=== PATIENT | male | born 1965 | race Caucasian/White ===

== ENCOUNTER 2016-06-22 17:34 | Emergency (ER) | payer BC ==
--- NOTE | 2016-06-22 17:36 | PDOC ---
History of Present Illness - General History Source: Patient Exam Limitations: No Limitations - History of Present Illness Initial Comments: 06/22/16 17:45 The patient is a 51 year old male, with no significant past medical history, who presents today complaining of an unusual breathing sensation. The patient states that he was sitting home at his computer when he started to notice his breathing. The heavy breathing is not exacerbated when walking or walking up steps. The patient states that he is unsure of these symptoms are all in his head, but visited the emergency room to be sure he was not having any heart related issues. Denies chest pain, cough. Denies fever, chills, nausea, vomiting. Denies hx of HTN, asthma, heart disease, allergies. Allergies:None reported. <Le Valerio - Last Filed: 06/22/16 18:11> <Kehinde Dumont - Last Filed: 06/22/16 18:14> - General Chief Complaint: Shortness of Breath Stated Complaint: SOB Time Seen by Provider: 06/22/16 17:36 Past History <Le Valerio - Last Filed: 06/22/16 18:11> <Kehinde Dumont - Last Filed: 06/22/16 18:14> - Past Medical History Allergies/Adverse Reactions: Allergies Allergy/AdvReac Type Severity Reaction Status Date / Time No Known Allergies Allergy Verified 06/22/16 17:35 Home Medications: Ambulatory Orders NK [No Known Home Medication] 06/22/16 Review of Systems - Review of Systems Able to Perform ROS?: Yes Comments:: 06/22/16 17:45 CONSTITUTIONAL: Present: anxious Absent: Fever, Chills, Diaphoresis, Generalized Weakness, Malaise, Loss of Appetite HEENT: Absent: Rhinorrhea, Nasal Congestion, Throat Pain, Throat Swelling, Difficulty Swallowing, Mouth Swelling, Ear Pain, Eye Pain, Visual Changes LUNGS: Present: unusual breathing sensation CARDIOVASCULAR: Absent: Chest Pain, Syncope, Palpitations, Irregular Heart Rate, Lightheadedness , Peripheral Edema MUSCULOSKELETAL: Absent: Myalgia, Arthralgia, Joint Swelling, Back pain, Neck Pain SKIN: Absent: Rash, Itching, Pallor <Le Valerio - Last Filed: 06/22/16 18:11> *Physical Exam - Physical Exam Comments: 06/22/16 17:46 GENERAL: [The patient is awake, alert, and fully oriented, in no acute distress. +Anxious] HEAD: [Normal with no signs of trauma.] EYES: [Pupils equal, round and reactive to light, extraocular movements intact, sclera anicteric, conjunctiva clear.] EXTREMITIES: [Normal range of motion, no edema. Sensation intact. Circulation intact.] NEUROLOGICAL: [Normal speech, normal gait.] PSYCH: [Normal mood, normal affect.] SKIN: [Warm, Dry, normal turgor, no rashes or lesions noted.] <Le Valerio - Last Filed: 06/22/16 18:11> Heart Score/ECG Review #1 06/22/16 17:47 NORMAL EKG: Twelve-lead EKG was performed and reviewed by me. There is normal sinus rhythm at a rate of 64 beats per minute. The axis is normal. The intervals are normal. There are no abnormal Q waves. There are no abnormal ST elevations or depressions. There are no significant T wave abnormalities. Impression: Normal twelve-lead EKG. <Le Valerio - Last Filed: 06/22/16 18:11> ED Treatment Course - RADIOLOGY Radiograph Interpretation: 06/22/16 18:11 Chest X-Ray PA and LAT Normal as reviewed by Dr. Dumont <Le Valerio - Last Filed: 06/22/16 18:11> Medical Decision Making - Medical Decision Making 06/22/16 18:09 Patient presents with a new sensation related to his breathing at rest. The symptoms are better with exertion. He is under a lot of stress due to family issues. His is undergoing chemotherapy for lymphoma. Vital signs, physical examination, twelve-lead EKG, and chest x-ray are all normal. Impression: Probable anxiety, workup is normal. Patient reassured. Small dose of alprazolam given. 06/22/16 18:10 The scribe's documentation has been prepared under my direction and personally reviewed by me in its entirety. I have confirmed that the note above accurately reflects all work, treatment, procedures, and medical decision- making performed by me. <Kehinde Dumont - Last Filed: 06/22/16 18:14> *DC/Admit/Observation/Transfer - Attestations Scribe Attestion: 06/22/16 17:47 Documentation prepared by ALPA Parker, acting as medical engineer for Kehinde Dumont MD. <Le Valerio - Last Filed: 06/22/16 18:11> - Discharge Dispostion Admit: No <Kehinde Dumont - Last Filed: 06/22/16 18:14> Diagnosis at time of Disposition: Anxiety about health - Discharge Dispostion Disposition: HOME Condition at time of disposition: Stable - Patient Instructions Additional Instructions: Today you were evaluated for a sensation with your breathing while resting. Your chest x-ray, EKG, and physical examination were all normal. Try relaxation techniques. Follow-up with her primary care physician. Return to the emergency department for any severe or progressive symptoms.
[2016-06-22 18:08] VITALS: BP 118/75; PULSE 97; TEMP 97.8; BMI 28.1
[2016-06-22] MEDS ORDERED: ALPRAZolam 0.25 MG TABLET PO ONE (18:09)
[2016-06-22] MEDS ORDERED: ALPRAZolam 0.25 MG TABLET ONE (18:15)
--- NOTE | 2016-06-23 17:12 | EKG ---
Test Reason : Blood Pressure : / mmHG Vent. Rate : 064 BPM Atrial Rate : 064 BPM P-R Int : 130 ms QRS Dur : 090 ms QT Int : 394 ms P-R-T Axes : 037 005 026 degrees QTc Int : 406 ms NORMAL SINUS RHYTHM NORMAL ECG NO PREVIOUS ECGS AVAILABLE Confirmed by JOVANI MOJICA MD ([id number]) on 06/23/2016 5:12:11 PM Referred By: AARTI WALLER Confirmed By:JOVANI MOJICA MD
== END 2016-06-22 18:39 | disposition home or self-care (01) ==
LOC: FER 17:34
DX: F06.4 Anxiety disorder due to known physiological condition (principal)
CPT/HCPCS: 71020-TC; 93005; 99282-25

== ENCOUNTER 2017-01-02 08:17 | Day surgery (SDC) | payer BC ==
[2016-12-31 15:30] VITALS: BMI 30.2
[2017-01-02] MEDS ORDERED: LIDOCAINE HCL 1%, 10 MG/ML (20ML VIAL) ONE (10:20)
[2017-01-02] MEDS ORDERED: BUPIVACAINE HCL 0.25% 125 MG/50 ML VIAL ONE (10:21)
[2017-01-02] MEDS ORDERED: MIDAZOLAM HCL 2 MG/2 ML SINGLE DOSE VIAL ONE (10:26)
[2017-01-02] MEDS ORDERED: PROPOFOL 20 ML ONE (10:36)
[2017-01-02] MEDS ORDERED: KETOROLAC TROMETHAMINE 30 MG/1 ML VIAL ONE (10:59)
[2017-01-02] MEDS ORDERED: DEXAMETHASONE SOD PHOSPHATE 4 MG/1 ML VIAL ONE (10:59)
[2017-01-02] MEDS ORDERED: ONDANSETRON 4 MG/2 ML VIAL ONE (10:59)
[2017-01-02] MEDS ORDERED: BUPIVACAINE HCL/PF 0.25% (2.5MG/ML) 10 ML VIAL IJ ONE (11:22)
[2017-01-02] MEDS ORDERED: oxyCODONE HCL 5 MG TABLET ONE ×2 (11:41→12:22)
[2017-01-02 12:36] VITALS: TEMP 98
[2017-01-02 13:10] VITALS: BP 129/73; PULSE 54
--- NOTE | 2017-01-06 10:24 | OP ---
DATE OF OPERATION: 01/02/2017 SURGEON: Damari Rutledge MD HAIR BLENDER: CJ Yeh PREOPERATIVE DIAGNOSES: 1. Right elbow labral epicondylitis. 2. Right elbow mass. POSTOPERATIVE DIAGNOSES: 1. Right elbow labral epicondylitis. 2. Right elbow mass. PROCEDURE: 1. Open excision of right elbow mass. 2. Right elbow lateral epicondylar release with removal of scar tissue. 3. Right elbow removal of bone spur, lateral epicondyle. FINDINGS: 1. Mass in the adipose layer of both the fascia and lateral epicondyle, sent to Pathology for evaluation. 2. Thickened scar tissue, lateral epicondylar insertion. 3. Thickened scar tissue, musculotendinous junction of the tendon. 4. Bone spur, right elbow lateral epicondyle. DESCRIPTION OF PROCEDURE: Informed consent was obtained. The patient was taken to the operating room where the right upper extremity was prepped and draped in sterile fashion. Tourniquet was placed above the elbow and inflated to 250 mmHg. Incision was made on the area of the mass. This was extended to allow for lateral epicondylar release as well. Mass was identified in the adipose layer above the fascia. This was excised in whole, was found to be a darkened, multi-layer mass and sent to Pathology for evaluation. The tendon was then identified, and paratenon was incised. Inverted U incision lifted the central third of the extensor supinator tendon complex. Undersurface scar tissue was debrided. Bone spur was noted on the lateral epicondyle and was removed with a rongeur. The wound was then irrigated with copious amount of irrigation. The central portion of the tendon was re-sutured into place in a slightly lengthened position. Wound was irrigated with copious amounts of irrigation, and the fascia covering the extensor supinator mass was released distally. A layered closure of 2-0 Vicryl and 3-0 nylon was performed. Sterile dressing was placed. Patient was transferred to Recovery without complication. DAMARI RUTLEDGE M.D. [id number]
--- NOTE | 2017-01-06 14:12 | PATH ---
Surgical Pathology Report Patient Name: KYLAH LEHMAN [facility]. Rec. #: [id number] /Age/Gender: 1965 (Age: 51) / M Account: [id number] Location: [facility] AMBUL[facility]ORY Taken: 01/02/2017 Received: 01/02/2017 Reported: 01/06/2017 Physicians: Catarino Schroeder M.D. Specimen(s) Received A: RIGHT ARM EPICONDYLE MASS B: DEEP LATERAL EPICONDYLE SCAR TISSUE RIGHT ARM Clinical History Painful mass right elbow, lateral epicondylitis Final Diagnosis A. SOFT TISSUE, RIGHT ARM, EPICONDYLE MASS, EXCISION: BENIGN SINUSOIDAL/CAVERNOUS HEMANGIOMA. B. SOFT TISSUE, RIGHT ARM, DEEP LATERAL EPICONDYLE SCAR TISSUE, EXCISION: CONNECTIVE TISSUE WITH FIBROSIS AND FIBROCARTILAGE, COMPATIBLE WITH SCAR. Electronically Signed Aiden Ware M.D. Gross Description A. Received in formalin, labeled "right arm epicondyle mass" is a 1.7 x 1 x 0.6 cm fragment of singh soft tissue. The specimen is bisected and submitted entirely in one cassette B. Received in formalin, labeled "deep lateral epicondyles scar tissue, right arm" is a 0.6 cm in greatest dimension a fragment of singh skin. Submitted entirely in one cassette. AF/01/05/2017 final/01/05/2017
== END 2017-01-02 13:35 | disposition home or self-care (01) ==
LOC: FASU 08:17
PROVIDERS: ATTEND Orthopaedic Surgery
PROC: 0JBG0ZX Excision of Right Lower Arm Subcutaneous Tissue and Fascia, Open Approach, Diagnostic (ICD-10-PCS; 2017-01-02)
PROC: 0LN50ZZ Release Right Lower Arm and Wrist Tendon, Open Approach (ICD-10-PCS; principal; 2017-01-02 10:53)
DX: M77.11 Lateral epicondylitis, right elbow (principal); D18.09 Hemangioma of other sites
CPT/HCPCS: 88304-TC; 88305-TC

== ENCOUNTER 2017-01-19 10:17 | Day surgery (SDC) | payer BC ==
[2017-01-15 13:35] VITALS: BMI 29.7
[2017-01-19] MEDS ORDERED: PROPOFOL 20 ML ONE ×2 (11:03)
[2017-01-19 12:26] VITALS: TEMP 98
[2017-01-19 12:28] VITALS: BP 100/65; PULSE 62
== END 2017-01-19 12:49 | disposition home or self-care (01) ==
LOC: FASU-ENDO 10:17
PROVIDERS: ATTEND Internal Medicine Gastroenterology
PROC: 0DJD8ZZ Inspection of Lower Intestinal Tract, Via Natural or Artificial Opening Endoscopic (ICD-10-PCS; principal; 2017-01-19 11:44)
DX: Z12.11 Encounter for screening for malignant neoplasm of colon (principal); Z80.0 Family history of malignant neoplasm of digestive organs

== ENCOUNTER 2018-02-27 12:17 | Observation (INO) | payer BC ==
--- NOTE | 2018-02-27 12:47 | PDOC ---
History of Present Illness - General Stated Complaint: SYNCOPE Time Seen by Provider: 02/27/18 12:19 History Source: Patient Exam Limitations: No Limitations - History of Present Illness Initial Comments: 02/27/18 13:00 Mr. Mcconnell is a 53 yo M with no pertinent past medical history presents to the emergency department BIBA after a witnessed syncopal event at 11:30 am with LOC. Per the patient, he was at a local hardware store, felt lightheadedness and stepped outside when he had his syncopal event. Denies having headaches, fevers, FND, chest pain, SOB, nausea, and vomiting preceding and during the syncopal episode. Per EMS, bystanders deny him hitting his head and the syncopal event lasted 4 seconds. Currently he is asymptomatic without pain and only complains of a small abrasion on the left knee. However, the stated she spoke to the patient after the syncopal event and had slurring of speech after speaking normally initially on the phone with the patient. Denies recent sicknesses, dysuria, hematuria, diarrhea, and melena. No recent travels, immbolizations, cancer hx, hx of DVT. Endorses having elbow surgery right side 14 months ago. Pmhx: Refer to above Shx: Refer to above Meds: None Allergies: Cimetidine Social hx: Denies tobacco, alcohol, and drug abuse. PCP: Dr. Carvajal ([facility]) 02/27/18 15:09 Past History - Past Medical History Allergies/Adverse Reactions: Allergies Allergy/AdvReac Type Severity Reaction Status Date / Time cimetidine [From Tagamet] Allergy Severe SEVERE Verified 02/27/18 12:20 HEADACHE cimetidine HCl [From Tagamet] Allergy Severe SEVERE Verified 02/27/18 12:20 HEADACHE Home Medications: Ambulatory Orders Bacitracin - [Bacitracin Topical Ointment -] 1 applic TP DAILY PRN 4 Days #1 tube 02/28/18 Anemia: No Asthma: No Cancer: No Cardiac Disorders: No CVA: No COPD: No CHF: No Dementia: No Diabetes: No GI Disorders: Yes (CONSTIPATION;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;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) Disorders: No HTN: No Hypercholesterolemia: No Liver Disease: No Seizures: No Thyroid Disease: No - Surgical History Abdominal Surgery: (HERNIA REPAIR A CHILD) Appendectomy: No Cardiac Surgery: No Cholecystectomy: No Lung Surgery: No Neurologic Surgery: No Orthopedic Surgery: Yes (RIGHT ELBOW SURGERY FOR MASS EXCISION) - Suicide/Smoking/Psychosocial Hx Smoking History: Never smoked Have you smoked in the past 12 months: No Hx Alcohol Use: No Drug/Substance Use Hx: No Substance Use Type: None Review of Systems - Review of Systems Able to Perform ROS?: Yes Is the patient limited Kyrgyz proficient: No Constitutional: No: Chills, Diaphoresis, Fever, Weakness HEENTM: No: Blurred Vision, Recent change in vision, Ear Pain, Nose Pain, Throat Pain, Mouth Pain Respiratory: No: Cough, Shortness of Breath Cardiac (ROS): Yes: Syncope. No: Chest Pain, Palpitations, Chest Tightness ABD/GI: No: Diarrhea, Nausea, Poor Appetite, Rectal Bleeding, Vomiting, Abdominal cramping, Tarry Stools : No: Burning, Dysuria, Discharge, Hematuria Musculoskeletal: No: Back Pain, Joint Pain, Neck Pain Integumentary: No: Rash Neurological: No: Headache, Numbness, Paresthesia, Tingling, Tremors, Weakness, Ataxia Psychiatric: No: Stressors Endocrine: No: Increased Hunger Hematologic/Lymphatic: No: Anemia *Physical Exam - Vital Signs Last Vital Signs Temp Pulse Resp BP Pulse Ox 97.9 F 67 16 108/65 02/27/18 12:21 02/27/18 12:21 02/27/18 12:21 02/27/18 12:21 - Physical Exam General Appearance: Yes: Nourished, Appropriately Dressed HEENT: positive: EOMI, CASANDRA Neck: positive: Trachea midline. negative: Lymphadenopathy (R), Lymphadenopathy (L) Respiratory/Chest: positive: Lungs Clear, Normal Breath Sounds. negative: Chest Tender, Respiratory Distress, Accessory Muscle Use Cardiovascular: positive: Regular Rate, S1, S2, Bradycardia. negative: Systolic Murmur Vascular Pulses: Dorsalis-Pedis (R): 3+, Doralis-Pedis (L): 3+ Gastrointestinal/Abdominal: positive: Normal Bowel Sounds. negative: Tender Lymphatic: negative: Adenopathy Musculoskeletal: positive: Normal Inspection. negative: CVA Tenderness Extremity: positive: Normal Capillary Refill, Normal Inspection, Normal Range of Motion. negative: Tender Integumentary: positive: Normal Color, Dry, Warm Neurologic: positive: coil assembler II-XII NML intact, Fully Oriented, Alert, Normal Mood/ Affect, Normal Response, Motor Strength 5/5, Finger to Nose (able to do so without deficits). negative: EOM Palsy, Facial Droop, Sensory Deficit, Disoriented, Depressed Affect Heart Score/ECG Review - ECG Intrepretation Comment:: 02/27/18 13:15 ventricular rate 56 bpm, LA 136 ms, QRS 92 ms, QTc 391 ms. Sinus marcie cardia no ST elevations or depressions ED Treatment Course - LABORATORY CBC & Chemistry Diagram: 02/28/18 05:30 02/28/18 05:30 Medical Decision Making - Medical Decision Making 02/27/18 13:16 53 yo M with no pmhx presents s/p syncopal event ddx: syncope (cardiogenic vs neurogenic vs volume status vs infectious etiology ) vs TIA Initial vitals: Initial Vital Signs Temp Pulse Resp BP 97.9 F 67 16 108/65 02/27/18 12:21 02/27/18 12:21 02/27/18 12:21 02/27/18 12:21 Work up: CBC, cmp, troponins, EKG, cxr, head ct ordered. CBC to assess anemia and infectious process. CMP to assess electrolyte abnormalities. Troponins/EKG to assess cardiac status. Head CT to assess if intracranial masses or bleeds present. CXR to assess infectious etiology or effusions Laboratory Tests 02/27/18 02/27/18 14:00 14:00 WBC 11.7 H RBC 4.97 Hgb 14.8 Hct 44.5 MCV 89.5 MCH 29.8 MCHC 33.3 RDW 13.8 Plt Count 278 MPV 7.4 L Absolute Neuts (auto) 9.6 H Neutrophils % 81.6 Lymphocytes % 10.7 Monocytes % 7.2 Eosinophils % 0.1 Basophils % 0.4 Nucleated RBC % 0 Sodium 142 Potassium 4.2 Chloride 106 Carbon Dioxide 29 Anion Gap 7 L BUN 19 H Creatinine 1.0 Creat Clearance w eGFR > 60 Random Glucose 76 Calcium 8.7 Total Bilirubin 0.5 AST 26 ALT 39 Alkaline Phosphatase 63 Creatine Kinase 108 Troponin I < 0.02 Total Protein 6.7 Albumin 3.[address] within normal limits. 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 Will admit for observation tele for cardiac events and further work up. Was given 1 liter of NS in the department. Dispo: Admit *DC/Admit/Observation/Transfer Diagnosis at time of Disposition: Syncope and collapse - Discharge Dispostion Decision to Admit order: Yes - Prescriptions - Referrals - Patient Instructions - Post Discharge Activity
--- NOTE | 2018-02-27 12:52 | PDOC ---
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 PT was walking at hardware store, began to experience lightheadedness, tunnel vision, walked out of the hardware store and fell over. Per EMS, fall was witnessed by bystander. Per bystander, pt had no head strike. LOC approx 4 seconds. Per pt's , he called her soon afterwards and she noted his speech was slurred on the phone. She states his speech is no longer slurred at this time. No CP, palps, SOB before or after syncopal episode. Per EMS, pt was not confused at the scene. No urine or stool incontinence. Reports he has hayfever and took a sudafed this morning as he often does. Denies recent fevers, chills, abd pain, N/V/D, LE edema. Denies recent travel. 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 Vitals wnl. Exam wnl. Story mostly consistent with vasovagal syncope although no triggers, however, slurred speech reported by concerning for possible neurologic event. Plan -tele -labs -CT -tele obs Heart Score/ECG Review #1 02/27/18 12:52 Twelve-lead EKG was performed and reviewed by me. Sinus bradycardia, rate 56. Normal axis. No ST elevations. Isolated to lead 3. Normal QT interval. Normal QRS interval. No delta waves.
[2018-02-27 14:14] LABS: BASO % 0.4 % (0-2.0); EOS % 0.1 % (0-4.5); HEMATOCRIT 44.5 % (35.4-49); HEMOGLOBIN 14.8 GM/dL (11.7-16.9); LYMPH % 10.7 % (8-40); MCH 29.8 pg (25.7-33.7); MCHC 33.3 g/dl (32.0-35.9); MEAN CELL VOLUME 89.5 fl (80-96); MEAN PLT VOLUME 7.4 fl (7.5-11.1); MONO % 7.2 % (3.8-10.2); NEUT % 81.6 % (42.8-82.8); PLATELET COUNT 278 K/MM3 (134-434); RBC 4.97 M/mm3 (4.00-5.60); RDW 13.8 % (11.9-15.9); WHITE BLOOD COUNT 11.7 K/mm3 (4.0-10.0)
[2018-02-27 14:39] LABS: ALBUMIN 3.9 g/dl (3.4-5.0); ANION GAP 7 MMOL/L (8-16); BILIRUBIN,TOTAL 0.5 mg/dL (0.2-1.0); BLOOD UREA NITROGEN 19 mg/dL (7-18); CALCIUM 8.7 mg/dL (8.5-10.1); CHLORIDE 106 mmol/L (98-107); CO2 29 mmol/L (21-32); GLUCOSE,RANDOM 76 mg/dL (74-106); POTASSIUM 4.2 mmol/L (3.5-5.1); SGOT/AST 26 U/L (15-37); SGPT/ALT 39 U/L (13-61); SODIUM 142 mmol/L (136-145); TOT PROT 6.7 g/dl (6.4-8.2)
[2018-02-27 14:42] LABS: ALK PHOS 63 U/L (45-117)
[2018-02-27] MEDS ORDERED: SODIUM CHLORIDE 1,000 ML IV STA (15:15)
[2018-02-27] MEDS ORDERED: SODIUM CHLORIDE 1,000 ML IV SCH (16:15)
--- NOTE | 2018-02-27 16:15 | PN ---
Teaching Attending Note Name of Resident: Karina Soler ATTENDING PHYSICIAN STATEMENT I saw and evaluated the patient. I reviewed the resident's note and discussed the case with the resident. I agree with the resident's findings and plan as documented with exceptions below. SUBJECTIVE: 53 yom with no significant PMHX, this AM woke up, had breakfast with coffee, drove the hardware store few minutes away, was in the store when felt dizzy, blurry, came out in the sun and transiently passed, fell on his knees when was supported by bystanders, remembers hitting his knees but unsure how hit left forearm. Had momentary LOC, but recalls being supported up, called his and asked her to machine pecan picker. Per patient, he told his to pick him up at [employer], per , unsurre if the word "[employer]" was slurred, but patient stresses it was likely as was on the phone conversation and denies any any further speech/ vision disturbances. Denies any chest pain, palpitations, dyspnea, shaking around the episode. Was noted with Blood sugar 67 at the scene per and was noted orthostatic after 1L IVF hydration in the ED, HR 70s from 62 on standing without any complaints. Currently feels well, neg on 12 point ROS. Reports similar episode 27 years ago while on a trip, given the lack of sleep and fatigue. Has been stressed and waking up almost every night, also feels fatigued from long commute and work hours. Gets headache and dizziness when sleep deprived or has low sugar Per , baseline HR in 50s, snores at night. Also fairly active and exercises 2-3 times a week with no concerns. FamHx of colon ca, has regular colonoscopy screening, last within last 1 year. NO recent changes in bowels, dark or bloody stools or new concerns noted. OBJECTIVE: Vital Signs Period Temp Pulse Resp BP Sys/Bean Pulse Ox Last 24 Hr 97.9 F 62-74 16 98-108/65-73 98 Intake & Output 02/24/18 02/25/18 02/26/18 02/27/18 23:59 23:59 23:59 23:59 Weight 205 lb GENERAL: Awake, alert, and fully oriented, in no acute distress. HEAD: Normal with no signs of trauma. EYES: Pupils equal, round and reactive to light, extraocular movements intact, sclera anicteric, conjunctiva clear. No lid lag. EARS, NOSE, THROAT: Ears normal, nares patent, oropharynx clear without exudates. Moist mucous membranes. NECK: Soft, supple, no JVD or carotid bruit noted LUNGS: Breath sounds equal, clear to auscultation bilaterally. No wheezes, and no crackles. No accessory muscle use. HEART: S1S2 regular, 60s, no murmurs, rubs or gallops appreciated ABDOMEN: Soft, nontender, not distended, normoactive bowel sounds, no guarding, no rebound, no masses. No hepatomegaly or splenomegaly appreciated. MUSCULOSKELETAL: Normal range of motion at all joints. No bony deformities or tenderness. No CVA tenderness. UPPER EXTREMITIES: 2+ pulses, warm, well-perfused. No cyanosis. No clubbing. No peripheral edema. Left elbow bruise with no active bleed LOWER EXTREMITIES: 2+ pulses, warm, well-perfused. No calf tenderness. 1 cm area of abrasion with minimal active bleed over right patellar region, no discharge or surrounding swelling or limitation or ROM noted NEUROLOGICAL: Cranial nerves II-XII intact. Normal speech. Normal gait. AAOx3, facial symmetry, PERRL, EOMI, power 5/5, sensation intact and symmetric to light touch, toes down going, DTR symmetric, no pronator drift PSYCHIATRIC: Cooperative. Good eye contact. Appropriate mood and affect. SKIN: Warm, dry, normal turgor, no rashes or lesions noted, normal capillary refill. Home Medications Medication Instructions Recorded Ibuprofen 800 mg PO DAILY PRN 01/15/17 Active Medications Sodium Chloride (Normal Saline -) 1,000 mls @ 1,000 mls/hr IV ASDIR STA Stop: 02/27/18 16:14 Last Admin: 02/27/18 14:00 Dose: 1,000 mls/hr Laboratory Results - last 24 hr 02/27/18 02/27/18 02/27/18 14:00 14:00 15:21 WBC 11.7 H RBC 4.97 Hgb 14.8 Hct 44.5 MCV 89.5 MCH 29.8 MCHC 33.3 RDW 13.8 Plt Count 278 MPV 7.4 L Absolute Neuts (auto) 9.6 H Neutrophils % 81.6 Lymphocytes % 10.7 Monocytes % 7.2 Eosinophils % 0.1 Basophils % 0.4 Nucleated RBC % 0 Sodium 142 Potassium 4.2 Chloride 106 Carbon Dioxide 29 Anion Gap 7 L BUN 19 H Creatinine 1.0 Creat Clearance w eGFR > 60 Random Glucose 76 Calcium 8.7 Total Bilirubin 0.5 AST 26 ALT 39 Alkaline Phosphatase 63 Creatine Kinase 108 Troponin I < 0.02 Total Protein 6.7 Albumin 3.9 TSH 0.71 EKG sinus marcie 50s ASSESSMENT AND PLAN: 53 yom with syncope -syncope, likely from mild hypovolumia as evident from bun/cr/stress/sleep deprivation compounded by borderline low blood sugars/Pseudoephedrine, pos orthostasis, low suspicion for concerning cardiac or neurological etiology. -Seasonal allergies on pseudoephedrine Plan: IVF, telemetry. Encourage PO food and fluid intake. Advised outpatient sleep study. Check TSH, A1c, lipid panel. Neuro checks. Low suspicion for cardiac/neurological etiology based on current presentation. Patient eager to be discharged. Echo/carotid studies can be done outpatient if no concerns overnight, Patient and relay understanding and agreable with follow up. Admit to observation telemetry. D/c in 24 hours if no concerns. Plan discussed with patient and in detail, all questions answered They relay understanding and agreable to follow up. Total admit time 55 min.
--- NOTE | 2018-02-27 16:47 | HP ---
CHIEF COMPLAINT: PCP: Dr. Davies HISTORY OF PRESENT ILLNESS: Patient is a 53 year old male with no PMHx who presented to the ED s/p syncopal episode. Patient reports he woke up this morning and was in his normal state of health. 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 When he was at the store, patient reports he felt like the room was blurry with some dizziness and then fell on his knees. Patient reports loosing consciousness for just a couple of seconds but remembers the fall. Patient received help from bystanders and then he called his asking her to pick him up. According to she thought he slurred one word when he was speaking , but patient denies it as he believes she misheard him on the phone. Patient however, denies chest pain, palpitations, shortness of breath, diaphoresis before, during, or after the fall. Patient does admit to having a similar episode 27 years ago when he was on a trip due to lack of sleep and dehydration. Patient also admits that in the last month he's had more stress than usual to the point he has not been sleeping throughout the night, causing him to be more fatigued during the day, especially from his long commute to work. According to , patient works out 2-3 times a week. He had a stress test done 15 years ago for chest pain and was negative. She also reports he snores at night and has baseline bradycardia. Otherwise, patient denies any fever, chills, nausea, vomiting, abdominal pain, chest pain, palpitations, shortness of breath, dysuria, hematuria, urgency, acute vision changes, melena, hematochezia. Of Note, patient was found to have glucose level of 67 on the field. In the ED he was found to have orthostatic, after administrating 1 liter of IV NS. When patient stood up his heart rate increased from 60's to 70's without any complaints. 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 Lives with . Smoking: Denies Alcohol: Denies Drugs: Denies Family History: Father- Obesity, HTN, CAD with stent placement age 78, DM Mother- Osteopenia Brother- Multiple sclerosis Allergies: cimetidine [From Tagamet] Allergy (Severe, Verified 02/27/18 12:20) SEVERE HEADACHE cimetidine HCl [From Tagamet] Allergy (Severe, Verified 02/27/18 12:20) SEVERE HEADACHE HOME MEDICATIONS: Home Medications Medication Instructions Recorded Ibuprofen 800 mg PO DAILY PRN 01/15/17 REVIEW OF SYSTEMS CONSTITUTIONAL: Absent: fever, chills, generalized weakness, malaise, loss of appetite, weight change HEENT: Absent: rhinorrhea, nasal congestion, throat pain, throat swelling, difficulty swallowing, mouth swelling, ear pain, eye pain, visual changes CARDIOVASCULAR: syncope Absent: chest pain, palpitations, irregular heart rate, lightheadedness, peripheral edema RESPIRATORY: Absent: cough, shortness of breath, dyspnea with exertion, orthopnea, wheezing, stridor, hemoptysis GASTROINTESTINAL: Absent: abdominal pain, abdominal distension, nausea, vomiting, diarrhea, constipation, melena, hematochezia GENITOURINARY: Absent: dysuria, frequency, urgency, hesitancy, hematuria, flank pain, genital pain MUSCULOSKELETAL: Absent: myalgia, arthralgia, joint swelling, back pain, neck pain SKIN: Absent: rash, itching, pallor HEMATOLOGIC/IMMUNOLOGIC: Absent: easy bleeding, easy bruising, lymphadenopathy, frequent infections ENDOCRINE: Absent: unexplained weight gain, unexplained weight loss, heat intolerance, cold intolerance NEUROLOGIC: dizziness, headache Absent: focal weakness or paresthesias, unsteady gait, seizure, mental status changes, bladder or bowel incontinence PSYCHIATRIC: Absent: anxiety, depression, suicidal or homicidal ideation, hallucinations. PHYSICAL EXAMINATION Vital Signs - 24 hr 02/27/18 02/27/18 02/27/18 12:21 14:13 15:47 Temperature 97.9 F Pulse Rate 67 Pulse Rate [ 67 Sitting] Pulse Rate [ 74 Standing] Pulse Rate [ 62 Supine] Respiratory 16 Rate Blood Pressure 108/65 Blood Pressure 98/65 [Sitting] Blood Pressure 108/73 [Standing] Blood Pressure 103/66 [Supine] O2 Sat by Pulse 98 Oximetry (%) GENERAL: Awake, alert, and fully oriented, in no acute distress. HEAD: Normal with no signs of trauma. EYES: Pupils equal, round and reactive to light, extraocular movements intact, sclera anicteric, conjunctiva clear. No lid lag. EARS, NOSE, THROAT: Oropharynx clear without exudates. Moist mucous membranes. NECK: (-) Bruits, (-) lymphadenopathy, (-) JVD, or masses. LUNGS: Breath sounds equal, clear to auscultation bilaterally. No wheezes, and no crackles. No accessory muscle use. HEART: Regular rate and rhythm, normal S1 and S2 without murmur, rub or gallop. ABDOMEN: Soft, nontender, not distended, normoactive bowel sounds, no guarding, no rebound, no masses. No hepatomegaly or splenomegaly. MUSCULOSKELETAL: No CVA tenderness. UPPER EXTREMITIES: No peripheral edema. LOWER EXTREMITIES: No peripheral edema. NEUROLOGICAL: Cranial nerves II-XII intact. Normal speech. Normal gait. PSYCHIATRIC: Cooperative. Good eye contact. Appropriate mood and affect. Motor strength 5/5 bilaterally with sensory intact SKIN: Superficial abrasion of right knee and left elbow. Normal Turgor, normal capillary refill. Laboratory Results - last 24 hr 02/27/18 02/27/18 02/27/18 14:00 14:00 15:21 WBC 11.7 H RBC 4.97 Hgb 14.8 Hct 44.5 MCV 89.5 MCH 29.8 MCHC 33.3 RDW 13.8 Plt Count 278 MPV 7.4 L Absolute Neuts (auto) 9.6 H Neutrophils % 81.6 Lymphocytes % 10.7 Monocytes % 7.2 Eosinophils % 0.1 Basophils % 0.4 Nucleated RBC % 0 Sodium 142 Potassium 4.2 Chloride 106 Carbon Dioxide 29 Anion Gap 7 L BUN 19 H Creatinine 1.0 Creat Clearance w eGFR > 60 Random Glucose 76 Calcium 8.7 Total Bilirubin 0.5 AST 26 ALT 39 Alkaline Phosphatase 63 Creatine Kinase 108 Troponin I < 0.02 Total Protein 6.7 Albumin 3.9 TSH 0.71 IMAGES: Chest X-Ray (02/27/18): No acute pathology Head CT (02/27/18): No acute pathology ASSESSMENT/PLAN: Patient is a 53 year old male who presented for S/P syncopal episode. Patient admitted to telemetry for further monitoring and management. Syncope -Likely secondary to hypovolemia as patient was found to have slightly elevated BUN of 19 with low glucose levels, history of Sudafed use, (+) orthostatics. -Low suspicion for cardiac or neurological etiologies. -Troponins negative, CT head negative, CXR negative -Continue IV NS @100mls/hr -Cardiac monitoring -Repeat orthostatics in the am -Check TSH, LIPIDS, A1C -Carotid U/S ordered -Neuro checks and frequent vital sign checks -Encourage fluid intake and PO food History of Snoring- Likely Sleep Apnea -May follow up as outpatient Right Knee and Left Elbow Abrasion -Bacitracin Topical daily. -Patient has no drainage F/E/N -IV NS @100mls/hr -Electrolytes wnl -Regular diet Prophylaxis -Low risk DVT as patient ambulates. EAM -No GI required Disposition -Full code -Overnight Telemetry monitoring and may be discharged tomorrow if no events overnight Visit type - Emergency Visit Emergency Visit: Yes ED Registration Date: 02/27/18 Care time: The patient presented to the Emergency Department on the above date and was hospitalized for further evaluation of their emergent condition. - New Patient This patient is new to me today: Yes Date on this admission: 02/27/18 - Critical Care Critical Care patient: No Hospitalist Screening - Colonoscopy Questionnaire Colonoscopy Questionnaire: Colonoscopy Questionnaire - Patient: 50 - 75 years old and never had a screening colonoscopy: No History of colon or rectal polyps, or CA: No History of IBD, Crohn's disease or UC: No History of abdominal radiation therapy as a child: No - Relative: 1 with colon or rectal CA, or polyps at age 60 or younger: Yes Colon or rectal CA diagnosed at age 45 or younger: No Multiple relatives with colon or rectal CA: No (Had colonoscopy done 1 year ago and reports negative) - Outcome: Screening Result: Positive Screen
[2018-02-27 16:48] LABS: PHOSPHOROUS 3.6 mg/dL (2.5-4.9)
[2018-02-27 17:03] LABS: CHOLESTEROL 212 mg/dL (50-200); HDL CHOLESTEROL 51 mg/dL (40-60); TRIGLYCERIDES 226 mg/dL (0-150)
[2018-02-27 18:33] VITALS: BMI 28.1
[2018-02-27] MEDS: BACITRACIN 15 GM TUBE TOPICAL OINTMENT TP SCH (20:05)
[2018-02-28] MEDS ORDERED: PT OWN MED DRAWER 7, Y5N ONE (06:24)
[2018-02-28 07:42] LABS: BASO % 0.3 % (0-2.0); EOS % 0.6 % (0-4.5); HEMOGLOBIN 13.8 GM/dL (11.7-16.9); LYMPH % 29.3 % (8-40); MCH 29.4 pg (25.7-33.7); MCHC 32.9 g/dl (32.0-35.9); MEAN CELL VOLUME 89.4 fl (80-96); MEAN PLT VOLUME 7.5 fl (7.5-11.1); MONO % 9.5 % (3.8-10.2); NEUT % 60.3 % (42.8-82.8); PLATELET COUNT 244 K/MM3 (134-434); WHITE BLOOD COUNT 6.4 K/mm3 (4.0-10.0)
[2018-02-28 08:33] LABS: CHLORIDE 110 mmol/L (98-107); POTASSIUM 4.4 mmol/L (3.5-5.1); SODIUM 146 mmol/L (136-145)
[2018-02-28 08:41] LABS: ANION GAP 11 MMOL/L (8-16); BLOOD UREA NITROGEN 16 mg/dL (7-18); CALCIUM 8.2 mg/dL (8.5-10.1); CO2 25 mmol/L (21-32); CREATININE 0.9 mg/dL (0.55-1.3); GLUCOSE,RANDOM 88 mg/dL (74-106); PHOSPHOROUS 2.8 mg/dL (2.5-4.9)
[2018-02-28 09:27] VITALS: BP 132/78; PULSE 77; TEMP 98.6
[2018-02-28] MEDS: BACITRACIN 15 GM TUBE TOPICAL OINTMENT TP SCH (09:30)
--- NOTE | 2018-02-28 09:32 | PN ---
Physical Exam: SUBJECTIVE: Patient seen and examined, no concerns overnight, no dizziness, weakness or new concerns. AMbulating well with no symptoms. OBJECTIVE: Vital Signs Period Temp Pulse Resp BP Sys/Bean Pulse Ox Last 24 Hr 97.9 F-98.6 F 56-77 16-18 98-155/42-84 98-99 GENERAL: sitting in bed in no acute distress Chest: CTAB, no rales or wheezing Neck: soft, supple, no carotid bruit appreciated Abdomen:soft, obese, NT, ND, positive bowel sounds Extremities: no edema, right knee wound with no active bleed or discharge CVS:S1S2 regular Laboratory Results - last 24 hr 02/27/18 02/27/18 02/27/18 14:00 14:00 15:18 WBC 11.7 H RBC 4.97 Hgb 14.8 Hct 44.5 MCV 89.5 MCH 29.8 MCHC 33.3 RDW 13.8 Plt Count 278 MPV 7.4 L Absolute Neuts (auto) 9.6 H Neutrophils % 81.6 Lymphocytes % 10.7 Monocytes % 7.2 Eosinophils % 0.1 Basophils % 0.4 Nucleated RBC % 0 Sodium 142 Potassium 4.2 Chloride 106 Carbon Dioxide 29 Anion Gap 7 L BUN 19 H Creatinine 1.0 Creat Clearance w eGFR > 60 Random Glucose 76 Hemoglobin A1c % Calcium 8.7 Phosphorus Magnesium Total Bilirubin 0.5 AST 26 ALT 39 Alkaline Phosphatase 63 Creatine Kinase 108 Troponin I < 0.02 Total Protein 6.7 Albumin 3.9 Triglycerides 226 H Cholesterol 212 H Total LDL Cholesterol 141 H HDL Cholesterol 51 TSH 02/27/18 02/27/18 02/27/18 15:18 15:21 20:30 WBC RBC Hgb Hct MCV MCH MCHC RDW Plt Count MPV Absolute Neuts (auto) Neutrophils % Lymphocytes % Monocytes % Eosinophils % Basophils % Nucleated RBC % Sodium Potassium Chloride Carbon Dioxide Anion Gap BUN Creatinine Creat Clearance w eGFR Random Glucose Hemoglobin A1c % Calcium Phosphorus 3.6 Magnesium 2.0 Total Bilirubin AST ALT Alkaline Phosphatase Creatine Kinase Troponin I < 0.02 Total Protein Albumin Triglycerides Cholesterol Total LDL Cholesterol HDL Cholesterol TSH 0.71 02/28/1818 02/28/18 05:30 05:30 05:30 WBC 6.4 RBC 4.70 Hgb 13.8 Hct 42.0 MCV 89.4 MCH 29.4 MCHC 32.9 RDW 14.0 Plt Count 244 MPV 7.5 Absolute Neuts (auto) 3.9 Neutrophils % 60.3 D Lymphocytes % 29.3 D Monocytes % 9.5 Eosinophils % 0.6 D Basophils % 0.3 Nucleated RBC % 0 Sodium 146 H Potassium 4.4 Chloride 110 H Carbon Dioxide 25 Anion Gap 11 BUN 16 Creatinine 0.9 Creat Clearance w eGFR > 60 Random Glucose 88 Hemoglobin A1c % 5.5 Calcium 8.2 L Phosphorus 2.8 Magnesium 2.0 Total Bilirubin AST ALT Alkaline Phosphatase Creatine Kinase Troponin I Total Protein Albumin Triglycerides Cholesterol Total LDL Cholesterol HDL Cholesterol TSH Active Medications Generic Name Dose Route Start Last Admin Trade Name Freq PRN Reason Stop Dose Admin Bacitracin 1 applic 02/27/18 18:45 02/27/18 20:05 Bacitracin - TP 1 applic DAILY GENEVIEVE Administration Sodium Chloride 1,000 mls @ 100 mls/hr 02/27/18 16:15 02/27/18 16:17 Normal Saline - IV 100 mls/hr ASDIR GENEVIEVE Administration telemtry NSR 60s-70s with some arteacts, no events Carotid duplex results noted ASSESSMENT/PLAN: 53 yom with syncope -syncope, likely from mild hypovolumia as evident from bun/cr/stress/sleep deprivation compounded by borderline low blood sugars/Pseudoephedrine, pos orthostasis, low suspicion for concerning cardiac or neurological etiology. -Seasonal allergies on pseudoephedrine Plan: No events on telemetry. Asymptomatic. Orthostatics this AM noted, lying SBP 150s, sitting and standing 130s. No symptoms. Patient advised increased fluid intake and avoiding sudden postural changes. Advised to avoid driving till PCP visit next week. Lipid panel noted, advised to discuss with PCP about diet/exercise vs statins. Outpatient sleep study. A1c noted. Carotid duplex noted. Advised outpatient 2D echo if concerns. D/c home today Plan discussed with patient in detail and all questions answered. Patient relays full understanding of discharge instructions and in agreement. Visit type - Emergency Visit Emergency Visit: Yes ED Registration Date: 02/27/18 Care time: The patient presented to the Emergency Department on the above date and was hospitalized for further evaluation of their emergent condition. - New Patient This patient is new to me today: No - Critical Care Critical Care patient: No - Discharge Referral Referred to [facility] Med P.C.: No
--- NOTE | 2018-02-28 09:35 | DS ---
Physical Exam: SUBJECTIVE: Patient seen and examined OBJECTIVE: Vital Signs Period Temp Pulse Resp BP Sys/Bean Pulse Ox Last 24 Hr 97.9 F-98.6 F 56-77 16-18 98-155/42-84 98-99 PHYSICAL EXAM GENERAL: The patient is awake, alert, and fully oriented, in no acute distress. HEAD: Normal with no signs of trauma. EYES: PERRL, extraocular movements intact, sclera anicteric, conjunctiva clear. ENT: Ears normal, nares patent, oropharynx clear without exudates, moist mucous membranes. NECK: Trachea midline, full range of motion, supple. LUNGS: Breath sounds equal, clear to auscultation bilaterally, no wheezes, no crackles, no accessory muscle use. HEART: Regular rate and rhythm, S1, S2 without murmur, rub or gallop. ABDOMEN: Soft, nontender, nondistended, normoactive bowel sounds, no guarding, no rebound, no hepatosplenomegaly, no masses. EXTREMITIES: 2+ pulses, warm, well-perfused, no edema. NEUROLOGICAL: Cranial nerves II through XII grossly intact. Normal speech, gait not observed. PSYCH: Normal mood, normal affect. SKIN: Warm, dry, normal turgor, no rashes or lesions noted. LABS Laboratory Results - last 24 hr 02/27/18 02/27/18 02/27/18 14:00 14:00 15:18 WBC 11.7 H RBC 4.97 Hgb 14.8 Hct 44.5 MCV 89.5 MCH 29.8 MCHC 33.3 RDW 13.8 Plt Count 278 MPV 7.4 L Absolute Neuts (auto) 9.6 H Neutrophils % 81.6 Lymphocytes % 10.7 Monocytes % 7.2 Eosinophils % 0.1 Basophils % 0.4 Nucleated RBC % 0 Sodium 142 Potassium 4.2 Chloride 106 Carbon Dioxide 29 Anion Gap 7 L BUN 19 H Creatinine 1.0 Creat Clearance w eGFR > 60 Random Glucose 76 Hemoglobin A1c % Calcium 8.7 Phosphorus Magnesium Total Bilirubin 0.5 AST 26 ALT 39 Alkaline Phosphatase 63 Creatine Kinase 108 Troponin I < 0.02 Total Protein 6.7 Albumin 3.9 Triglycerides 226 H Cholesterol 212 H Total LDL Cholesterol 141 H HDL Cholesterol 51 TSH 02/27/18 02/27/18 02/27/18 15:18 15:21 20:30 WBC RBC Hgb Hct MCV MCH MCHC RDW Plt Count MPV Absolute Neuts (auto) Neutrophils % Lymphocytes % Monocytes % Eosinophils % Basophils % Nucleated RBC % Sodium Potassium Chloride Carbon Dioxide Anion Gap BUN Creatinine Creat Clearance w eGFR Random Glucose Hemoglobin A1c % Calcium Phosphorus 3.6 Magnesium 2.0 Total Bilirubin AST ALT Alkaline Phosphatase Creatine Kinase Troponin I < 0.02 Total Protein Albumin Triglycerides Cholesterol Total LDL Cholesterol HDL Cholesterol TSH 0.71 02/28/18 02/28/18 02/28/18 05:30 05:30 05:30 WBC 6.4 RBC 4.70 Hgb 13.8 Hct 42.0 MCV 89.4 MCH 29.4 MCHC 32.9 RDW 14.0 Plt Count 244 MPV 7.5 Absolute Neuts (auto) 3.9 Neutrophils % 60.3 D Lymphocytes % 29.3 D Monocytes % 9.5 Eosinophils % 0.6 D Basophils % 0.3 Nucleated RBC % 0 Sodium 146 H Potassium 4.4 Chloride 110 H Carbon Dioxide 25 Anion Gap 11 BUN 16 Creatinine 0.9 Creat Clearance w eGFR > 60 Random Glucose 88 Hemoglobin A1c % 5.5 Calcium 8.2 L Phosphorus 2.8 Magnesium 2.0 Total Bilirubin AST ALT Alkaline Phosphatase Creatine Kinase Troponin I Total Protein Albumin Triglycerides Cholesterol Total LDL Cholesterol HDL Cholesterol TSH HOSPITAL COURSE: Date of Admission:02/27/18 Date of Discharge: 02/28/18 Minutes to complete discharge: 35 Discharge Summary Reason For Visit: SYNCOPE & COLLAPSE Current Active Problems Syncope and collapse (Acute) Hospital Course: Patient was watched on telemetry with no events. He had no new symptoms during his stay. His carotid duplex was negative concerning stenosis. His orthostatics after hydration were noted with SBP 150s lying and 130s while standing and sitting but no symptoms. He is advised oral hydration and avoid sudden changes in position or prolonged standing or sun exposure. His lipid panel was discussed with him and advised to discuss lifestyle modifications/medications with his PCP. He is advised outpatient 2D echo and sleep study. Condition: Good - Instructions Diet, Activity, Other Instructions: You were admitted with a fainting episode. You showed some evidence of dehydration and your BP was noted lower on sitting and standing position. You were watched on heart monitor with no concerns. You received hydration, your BP improved. You also received carotid duplex (neck ultrasound) that was negative for concerning narrowing. You cholesterol panel is as below: Triglycerides 226 Cholesterol 212 LDL 141 HDL 51 You can discuss with your doctor about diet and exercise regimen vs starting a cholesterol medication. Your HbA1c was 5.5. You are advised rest, plenty of fluids, and avoid prolonged sun exposure over the next few days Also recommend safe to avoid driving till seen by your doctor within the next few days. Avoid sudden changes in your position. Can apply bacitracin to right knee area and cover with a gauze till improved over next 2-3 days. You can discuss with your doctor for outpatient 2D echocardiogram and further testing especially if new concerns. Recommend outpatient sleep study. Call 911 or come to ED if any new dizziness, chest pain, palpitations, passing out, new weakness, speech or vision changes or new concerns noted. Referrals: Catarino Wood [Primary Care Provider] - Disposition: HOME - Home Medications Comprehensive Discharge Medication List: Ambulatory Orders Bacitracin - [Bacitracin Topical Ointment -] 1 applic TP DAILY PRN 4 Days #1 tube 02/28/18 This patient is new to me today: No Emergency Visit: Yes ED Registration Date: 02/27/18 Care time: The patient presented to the Emergency Department on the above date and was hospitalized for further evaluation of their emergent condition. Critical Care patient: No - Discharge Referral Referred to [facility] Med P.C.: No
--- NOTE | 2018-02-28 21:35 | EKG ---
Test Reason : Blood Pressure : / mmHG Vent. Rate : 056 BPM Atrial Rate : 056 BPM P-R Int : 136 ms QRS Dur : 092 ms QT Int : 406 ms P-R-T Axes : 038 -03 018 degrees QTc Int : 391 ms SINUS BRADYCARDIA OTHERWISE NORMAL ECG WHEN COMPARED WITH ECG OF 22-JUN-2016 17:42, NO SIGNIFICANT CHANGE WAS FOUND Confirmed by FERNANDA ESTRELLA MD ([id number]) on 02/28/2018 9:35:40 PM Referred By: Confirmed By:FERNANDA ESTRELLA MD
== END 2018-02-28 11:08 | disposition home or self-care (01) ==
LOC: JER 12:17 → JERBED 15:11 → J4W 19:43
PROVIDERS: ADMIT Hospitalist; ATTEND Hospitalist
PROC: 3E0337Z Introduction of Electrolytic and Water Balance Substance into Peripheral Vein, Percutaneous Approach (ICD-10-PCS; principal; 2018-02-27)
DX: R55 Syncope and collapse (principal); E86.1 Hypovolemia; E86.0 Dehydration; I95.1 Orthostatic hypotension; S80.211A Abrasion, right knee, initial encounter; S50.312A Abrasion of left elbow, initial encounter; W17.89XA Other fall from one level to another, initial encounter; Y93.89 Activity, other specified; Y92.512 Supermarket, store or market as the place of occurrence of the external cause; Y99.0 Civilian activity done for income or pay; E78.00 Pure hypercholesterolemia, unspecified; R00.1 Bradycardia, unspecified
CPT/HCPCS: 36415; 70450-TC; 71046-TC-FY; 80048; 80053; 80061; 82550; 83036; 83721; 83735; 84100; 84443; 84484; 85025; 93005; 93010; 93880-TC; 99285-25; G0378; J7030

== ENCOUNTER 2020-09-20 23:55 | Emergency (ER) | payer BC ==
[2020-09-21 00:10] VITALS: BP 147/56; PULSE 55; TEMP 98.5; BMI 30.5
[2020-09-21] MEDS ORDERED: SODIUM CHLORIDE 1,000 ML IV STA (00:11)
[2020-09-21] MEDS ORDERED: ACETAMINOPHEN 1000 MG/100 ML VIAL (NON FORMULARY) IVPB ONE (00:11)
[2020-09-21] MEDS ORDERED: ACETAMINOPHEN INJECTION 100 ML IVPB ONE (00:18)
[2020-09-21 01:01] LABS: BASO % 0.4 % (0-2.0); EOS % 0.6 % (0-4.5); HEMATOCRIT 44.8 % (35.4-49); HEMOGLOBIN 14.9 GM/dL (11.7-16.9); LYMPH % 30.3 % (8-40); MCH 30.1 pg (25.7-33.7); MCHC 33.3 g/dl (32.0-35.9); MEAN CELL VOLUME 90.2 fl (80-96); MEAN PLT VOLUME 7.9 fl (7.5-11.1); MONO % 10.6 % (3.8-10.2); NEUT % 58.1 % (42.8-82.8); PLATELET COUNT 306 K/MM3 (134-434); RBC 4.97 M/mm3 (4.00-5.60); RDW 13.9 % (11.9-15.9); URINE APPEARANCE CLEAR; URINE BILIRUBIN NEGATIVE (NEGATIVE); URINE COLOR YELLOW; URINE GLUCOSE (UA) NEGATIVE (NEGATIVE); URINE KETONE NEGATIVE (NEGATIVE); URINE LEUK ESTERASE NEGATIVE (NEGATIVE); URINE NITRITE NEGATIVE (NEGATIVE); URINE PROTEIN NEGATIVE (NEGATIVE); URINE UROBILINOGEN 0.2 mg/dL (0.2-1.0)
[2020-09-21 01:19] LABS: CHLORIDE 104 mmol/L (98-107); POTASSIUM 4.3 mmol/L (3.5-5.1); SODIUM 140 mmol/L (136-145)
[2020-09-21 01:22] LABS: CALCIUM 9.5 mg/dL (8.5-10.1)
[2020-09-21 01:23] LABS: ALBUMIN 3.8 g/dl (3.4-5.0); ANION GAP 6 MMOL/L (8-16); BLOOD UREA NITROGEN 23.4 mg/dL (7-18); CO2 31 mmol/L (21-32); GLUCOSE,RANDOM 91 mg/dL (74-106); LIPASE 176 U/L (73-393)
[2020-09-21 01:26] LABS: SGOT/AST 113 U/L (15-37); SGPT/ALT 77 U/L (13-61)
[2020-09-21 01:27] LABS: BILIRUBIN,TOTAL 0.5 mg/dL (0.2-1); TOT PROT 6.6 g/dl (6.4-8.2)
[2020-09-21 01:29] LABS: ALK PHOS 74 U/L (45-117)
[2020-09-21] MEDS ORDERED: MAG HYDROX/AL HYDROX/SIMETH 30 ML UNIT-DOSE CUP PO ONE (03:45)
[2020-09-21] MEDS ORDERED: MAG HYDROX/AL HYDROX/SIMETH 30 ML UNIT-DOSE CUP ONE (03:47)
== END 2020-09-21 03:51 | disposition home or self-care (01) ==
LOC: FER 23:55
PROC: 3E033GC Introduction of Other Therapeutic Substance into Peripheral Vein, Percutaneous Approach (ICD-10-PCS; principal; 2020-09-20)
PROC: 3E0337Z Introduction of Electrolytic and Water Balance Substance into Peripheral Vein, Percutaneous Approach (ICD-10-PCS; principal; 2020-09-20)
DX: R10.33 Periumbilical pain (principal); K76.89 Other specified diseases of liver; R11.0 Nausea
CPT/HCPCS: 36415; 74177-TC; 80053; 81003; 82550; 83605; 83690; 84484; 85025; 87086; 99285-25; J0131

== ENCOUNTER 2022-09-15 07:31 | Day surgery (SDC) | payer BC ==
[2022-09-12 10:11] VITALS: BMI 29.7
[2022-09-15 08:56] VITALS: PULSE 78; RESP 16; TEMP 97.3
[2022-09-15 09:04] VITALS: BP 99/63
== END 2022-09-15 09:15 | disposition home or self-care (01) ==
LOC: FASU-ENDO 07:31
PROVIDERS: ATTEND Internal Medicine Gastroenterology
PROC: 0DJD8ZZ Inspection of Lower Intestinal Tract, Via Natural or Artificial Opening Endoscopic (ICD-10-PCS; principal; 2022-09-15 08:23)
DX: Z12.11 Encounter for screening for malignant neoplasm of colon (principal); Z86.010 Personal history of colon polyps